=== PATIENT | male | born 1965 | race Caucasian/White ===

== ENCOUNTER 2021-04-17 22:40 | Emergency (ER) | payer SELFPAY ==
--- NOTE | ~2021-04-17 | CT_ITS ---
EXAMINATION: CT pelvis wo con DATE: 04/18/2021 03:27 INDICATION: Right hip pain TECHNIQUE: Computed tomography (CT) of the pelvis was performed without intravenous contrast. The dos e-length product (DLP) was 499.33 mGy-cm. Automated exposure control and iterative reconstruction bishop hnique were employed. COMPARISON: 05/20/2016 FINDINGS: There is no fracture, dislocation, or subluxation. Mild osteoarthritis is noted in the hips . There is distention of the urinary bladder. Changes of appendectomy are noted. No pathologically en larged pelvic lymph nodes are identified. IMPRESSION: 1. No acute osseous abnormality. Reviewed, dictated and finalized at location A.
--- NOTE | ~2021-04-17 | XR_ITS ---
EXAMINATION: XR hip RT 2V w AP pelvis INDICATION: Right hip pain TECHNIQUE: AP view of the pelvis and two views of the right hip COMPARISON: None available FINDINGS: Bone alignment is normal. There is no fracture. There is mild osteoarthritis of the hips. P hleboliths are noted in the pelvis. There is calcified atherosclerosis. IMPRESSION: 1. Mild osteoarthritis without acute osseous abnormality. Reviewed, dictated and finalized at location A.
[2021-04-17 22:51] VITALS: BP 161/89; PULSE 76; RESP 18; TEMP 36.9; O2SAT 99
[2021-04-17 22:58] LABS: Glucose Point of Care > 500 mg/dl (65-105)
[2021-04-17 23:16] VITALS: PULSE 75; RESP 13; O2SAT 99
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
[2021-04-18] MEDS: HYDROcodone/acetaminophen (*CRX) 5-325 MG TABLET 1 TAB PO (00:08)
[2021-04-18] MEDS: SODIUM CHLORIDE 0.9% IV 1,000 ML 999 ML IV CONT (00:08)
[2021-04-18] MEDS: KETOROLAC 30 MG/ML VIAL (*BKC) IV PUSH (00:10)
[2021-04-18 00:20] LABS: Basophils Absolute Auto 0.1 K/mm3 (0.0-0.1); Basophils Percent Auto 0.9 % (0.2-1.2); Eosinophils Percent Auto 0.7 % (0-4.4); Hematocrit 37.2 % (42.0-52.0); Hemoglobin 12.8 g/dL (14.0-18.0); Immature Granulocyte Absolute 0.02 K/mm3 (0.00-0.031); Immature Granulocyte Percent A 0.4 % (0-0.5); Lymphocytes Absolute Auto 1.48 K/mm3 (0.9-3.2); Lymphocytes Percent Auto 26.2 % (18.3-44.2); Mean Corpuscular HGB Conc 34.4 g/dl (32-36); Mean Corpuscular Hemoglobin 29.3 pg (26-34); Mean Corpuscular Volume 85.1 fl (80-100); Mean Platelet Volume 10.3 fl (7.4-10.4); Monocytes Absolute Auto 0.4 K/mm3 (0.1-0.6); Monocytes Percent Auto 6.7 % (2.6-8.5); Neutrophils Absolute Auto 3.7 K/mm3 (1.3-6.7); Neutrophils Percent Auto 65.1 % (45.5-73.1); Platelet Count Result 198 k/mm3 (150-375); Red Blood Count 4.37 M/mm3 (4.6-6.20); Red Cell Distribution Width 11.8 % (11.5-14.5); White Blood Count 5.6 K/mm3 (4.5-10.0)
[2021-04-18 00:49] LABS: Alanine Aminotransferase 22 U/L (4-50); Albumin Level 4.5 g/dL (3.5-5.1); Alkaline Phosphatase 115 U/L (38-126); Anion Gap 12 mmol/L (8-16); Aspartate Amino Transferase 21 U/L (17-59); Bilirubin,Total 0.7 mg/dL (0.2-1.3); Blood Urea Nitrogen 22 mg/dL (9-20); Calcium 9.6 mg/dL (8.4-10.2); Carbon Dioxide 26 mmol/L (22-30); Chloride 97 mmol/L (98-107); Estimated CRCL calculation 75 ml/min; Estimated Glomerular Filt Rate > 60; Glucose 551 mg/dL (65-110); Potassium 4.6 mmol/L (3.4-5.0); Sodium 135 mmol/L (137-145)
[2021-04-18 01:04] LABS: Add Urine Microscopic? YES; Appearance Urine Clear (Clear); Bilirubin Urine Negative (Negative); Blood Urine Negative (Negative); Color Urine Straw (Yellow); Glucose Urine UA 3+ mg/dL (Negative); Ketones Urine Negative (Negative); Leukocyte Esterase Ur Negative LEU/UL (Negative); Nitrate Urine Negative (Negative); Protein Urine Negative (Negative); Urobilinogen Urine Negative mg/dL (<2.0); WBC Urine 0-3 /hpf
[2021-04-18 01:12] LABS: Specific Grav Ur 1.032 (1.001-1.035)
[2021-04-18] MEDS: INSULIN HUMAN REGULAR (*BKC) 100 UNITS/ML 10 UNITS SUB-Q (01:28)
[2021-04-18 02:30] LABS: Glucose Point of Care 410 mg/dl (65-105)
[2021-04-18 02:33] VITALS: BP 164/86; PULSE 73; RESP 15; O2SAT 100
[2021-04-18] MEDS: HYDROmorphone HCL INJ (*CRX) 1 MG/ML SYR 0.5 MG IV PUSH (03:21)
[2021-04-18 05:38] VITALS: BP 116/71; PULSE 86; RESP 17; O2SAT 98
== END 2021-04-18 05:40 | disposition home or self-care (01) ==
PROVIDERS: Emergency Provider General Practice
DX: M54.31 Sciatica, right side (principal); E11.65 Type 2 diabetes mellitus with hyperglycemia; E11.42 Type 2 diabetes mellitus with diabetic polyneuropathy; Z79.4 Long term (current) use of insulin; Z91.14 Patient's other noncompliance with medication regimen; Z87.891 Personal history of nicotine dependence
CPT/HCPCS: 36415; 72192; 73502; 80053; 81001; 82948; 85025; 96361; 96374; 96375; 99284; A9270; J1170; J1815; J1885; J7030

== ENCOUNTER 2021-08-15 18:48 | Observation (INO) | payer OTHER, SELFPAY ==
[2021-08-15] VITALS (20 sets, daily range): BP systolic 97–133; BP diastolic 54–77; PULSE 73–92; RESP 11–23; TEMP 36.4; O2SAT 98–100
--- NOTE | ~2021-08-15 | CT_ITS ---
EXAMINATION: CT brain wo con INDICATION: Dizziness, history of CVA COMPARISON: None TECHNIQUE: Standard unenhanced head CT. The dose-length product (DLP) was 605.33 mGy-cm. The mA was a djusted according to patient size. Iterative reconstruction technique was employed. FINDINGS: There is no intracranial hemorrhage, acute infarction, or abnormal mass lesion. There is segundo btle low attenuation of the left thalamus which may reflect prior infarction. The ventricles are norm al. There is no abnormal mass effect or midline shift. The dalal-white matter differentiation is anna l. The basal cisterns are patent. The orbits are normal. The paranasal sinuses, mastoids and calvariu m are normal. IMPRESSION: 1. Low-attenuation of the left thalamus which may reflect prior infarction. Reviewed, dictated and finalized at location F. H WORKER
--- NOTE | ~2021-08-15 | CT_ITS ---
EXAMINATION: CTA brain carotid DATE: 08/15/2021 20:47 INDICATION: Transient alteration of awareness, dizziness TECHNIQUE: Computed tomographic angiography (CTA) of the head was performed without and with 100 mL O mnipaque-350 intravenous contrast. CTA of the neck was performed with intravenous contrast. The dose- length product was 1195.58 mGy-cm. Maximum intensity projection and volume rendered 3D-reconstruction s were created by the technologist on a separate workstation. Automated exposure control and iterativ e reconstruction technique were employed. COMPARISON: None. FINDINGS: HEAD CTA: There is no intracranial hemorrhage, acute infarction, or abnormal mass lesion. The ventric les are normal. There is no abnormal mass effect or midline shift. The dalal-white matter differentiat ion is normal. The basal cisterns are patent. The orbits are normal. The paranasal sinuses, mastoids and calvarium are normal. There is no significant stenosis of the basilar artery or posterior cerebral arteries. There is no si gnificant stenosis of the intracranial internal carotid arteries or the anterior or middle cerebral a rteries. The anterior communicating artery and left posterior communicating artery are normal. The ri ght posterior communicating arteries hypoplastic. There is no aneurysm. NECK CTA: The thyroid gland is unremarkable. The submandibular and parotid glands are symmetric. Ther e is no lymphadenopathy. There are no masses identified. The airway is unremarkable. There is mild ce rvical spondylosis.. The superior mediastinum is unremarkable. There is 29% stenosis of the proximal right internal carotid artery relative to normal distal artery lumen diameter (NASCET criteria). There is 11% stenosis of the proximal left internal carotid artery relative to normal distal artery lumen diameter. IMPRESSION: 1. No acute intracranial abnormality. Hypoplastic right posterior communicating artery, otherwise nor mal head CTA. 2. 29% stenosis of the proximal right internal carotid artery relative to normal distal artery lumen diameter (NASCET criteria). 3. 11% stenosis of the proximal left internal carotid artery relative to normal distal artery lumen d iameter. Reviewed, dictated and finalized at location F. ER PREPARER IMPRESSION: 1. No acute intracranial abnormality. Hypoplastic right posterior communicating artery, otherwise normal head CTA. 2. 29% stenosis of the proximal right internal carotid artery relative to anna l distal artery lumen diameter (NASCET criteria). 3. 11% stenosis of the proximal left internal carotid artery relative to normal distal artery lumen diameter.
--- NOTE | 2021-08-15 19:01 | ECG_ITS ---
Measurements Intervals [place] Rate: 73 P: 42 RI: 168 QRS: -6 QRSD: 96 T: 42 QT: 408 QTc: 450 Interpretive Statements SINUS RHYTHM INCOMPLETE RIGHT BUNDLE BRANCH BLOCK CANNOT RULE OUT SEPTAL INFARCT, AGE INDETERMINATE BASELINE ARTIFACT- V1 ABNORMAL ECG Electronically Signed On 08-15-2021 20:54:26 HEALTHCARE ADVISORY SERVICES MANAGER by Ronny Mcclellan D.O.
[2021-08-15 19:05] LABS: Glucose Point of Care 174 mg/dl (65-105)
[2021-08-15 19:20] LABS: Basophils Percent Auto 0.4 % (0.2-1.2); Eosinophils Percent Auto 0.1 % (0-4.4); Hematocrit 34.2 % (42.0-52.0); Hemoglobin 11.7 g/dL (14.0-18.0); Immature Granulocyte Absolute 0.05 K/mm3 (0.00-0.031); Immature Granulocyte Percent A 0.5 % (0-0.5); Lymphocytes Absolute Auto 1.61 K/mm3 (0.9-3.2); Lymphocytes Percent Auto 16.3 % (18.3-44.2); Mean Corpuscular HGB Conc 34.2 g/dl (32-36); Mean Corpuscular Hemoglobin 30.4 pg (26-34); Mean Corpuscular Volume 88.8 fl (80-100); Mean Platelet Volume 9.8 fl (7.4-10.4); Monocytes Absolute Auto 0.6 K/mm3 (0.1-0.6); Monocytes Percent Auto 6.2 % (2.6-8.5); Neutrophils Absolute Auto 7.6 K/mm3 (1.3-6.7); Neutrophils Percent Auto 76.5 % (45.5-73.1); Platelet Count Result 205 k/mm3 (150-375); Red Blood Count 3.85 M/mm3 (4.6-6.20); Red Cell Distribution Width 12.7 % (11.5-14.5); White Blood Count 9.9 K/mm3 (4.5-10.0)
--- NOTE | 2021-08-15 19:31 | ED.SYNCOPE ---
HPI - Syncope General Chief Complaint: Syncope Stated Complaint: DIZZY, NEAR SYNCOPE Time Seen by Provider: 08/15/21 19:07 Source: patient Mode of arrival: EMS Limitations: no limitations History of Present Illness HPI narrative: Patient is a 55-year-old male complaining of a syncopal episode while at work today. Patient states that he felt dizzy and passed out, lasted for approximately 30 minutes , happened around 5 PM, I do not remember coming here . Patient denies any headache, speech or visual disturbance, focal weakness or numbness, unsteady gait, chest pain, shortness of breath, abdominal pain, nausea, vomiting, diarrhea, fever or chills. Patient has a history of [place] and CVA in the past. Related Data Home Medications Medication Instructions Recorded Confirmed escitalopram oxalate 40 mg PO DAILY 04/17/21 gabapentin PO 04/17/21 insulin glargine [Lantus U-100 14 unit SUBCUT BID 04/17/21 Insulin] lisinopril 20 mg PO DAILY 04/17/21 04/17/21 pantoprazole 20 mg PO HS 04/17/21 Allergies Allergy/AdvReac Type Severity Reaction Status Date / Time No Known Allergies Allergy Unknown Verified 04/17/21 23:21 Review of Systems Review of Systems: All systems reviewed & are unremarkable except as noted in HPI and below Constitutional: Constitutional: Denies body ache(s), Denies chills, Denies excessive sweating, Denies fatigue, Denies fever(s), Denies headache(s), Denies lethargy, Denies malaise, Denies weakness and Denies weight loss Eyes: Eyes: Denies blurry vision, Denies change in vision and Denies loss of vision ENT: Denies dizziness, Denies ear discharge, Denies headache(s), Denies lip swelling, Denies epistaxis, Denies nasal congestion, Denies neck pain, Denies throat swelling and Denies tongue swelling Cardiovascular: Cardiovascular: Denies chest pain, Denies chest pain at rest, Denies chest pain with activity, Denies diaphoresis, Denies rapid heart rate, Denies edema, Denies irregular heart rhythm, Denies lightheadedness, Denies palpitations, Denies dyspnea and Denies dyspnea on exertion Respiratory: Respiratory: Denies chest congestion, Denies cough, Denies hemoptysis, Denies dyspnea and Denies dyspnea on exertion Gastrointestinal: Gastrointestinal: Denies abdominal pain, Denies melena, Denies hematochezia, Denies diarrhea, Denies nausea, Denies vomiting and Denies hematemesis Musculoskeletal: Musculoskeletal: Denies abnormal gait, Denies deformity, Denies joint swelling, Denies limited range of motion, Denies neck pain and Denies numbness Neurologic: Denies Abnormal speech present, Denies abnormal gait, Denies confusion, Denies headache(s), Denies focal weakness, Denies loss of vision, Denies numbness, Denies Other visual disturbances, Denies Sensory deficit (Neuro) and Denies weakness Psychiatric: Psychiatric: Denies confusion, Denies depression, Denies auditory hallucinations, Denies homicidal ideation and Denies suicidal ideation Endocrine: Endocrine: Denies cold intolerance, Denies excessive sweating, Denies fatigue, Denies heat intolerance and Denies palpitations Hematologic/Lymphatic: Hematologic/Lymphatic: Denies easy bleeding and Denies easy bruising Allergic/Immunologic: Allergic/Immunologic: Denies lip swelling, Denies throat swelling and Denies tongue swelling PMFSH Past Medical History Medical History Diabetes mellitus Noncompliance Peripheral neuropathy Social History Social History Smoking status: Former smoker Smoking end date: 06/21/88 Alcohol intake: current Substance use type: marijuana Exam Const: General: cooperative, healthy appearing, comfortable, no acute distress, well developed, alert and awake; No confusion Orientation/consciousness: oriented to person, oriented to place, oriented to time, patient oriented x3 and No confusion Limitations: no limitations [facility]
--- NOTE | 2021-08-15 19:36 | PC.NURSE ---
Called lab talked to Linda and added Trop 1- 19:37
[2021-08-15] MEDS: LACTATED RINGERS 1,000 ML 999 ML IV CONT (20:04)
[2021-08-15 20:13] LABS: Alanine Aminotransferase 20 U/L (4-50); Albumin Level 4.1 g/dL (3.5-5.1); Alkaline Phosphatase 98 U/L (38-126); Anion Gap 5 mmol/L (8-16); Aspartate Amino Transferase 21 U/L (17-59); Bilirubin,Total 0.7 mg/dL (0.2-1.3); Blood Urea Nitrogen 15 mg/dL (9-20); Calcium 9.1 mg/dL (8.4-10.2); Carbon Dioxide 29 mmol/L (22-30); Chloride 104 mmol/L (98-107); Estimated Glomerular Filt Rate > 60; Glucose 155 mg/dL (65-110); Sodium 138 mmol/L (137-145)
[2021-08-15 20:28] LABS: Troponin I < 0.012 ng/mL (0.000-0.034)
[2021-08-15] MEDS: ACETAMINOPHEN 325 MG TABLET 650 MG PO (22:33)
[2021-08-15 23:46] LABS: Add Urine Microscopic? YES; Appearance Urine Clear (Clear); Bilirubin Urine Negative (Negative); Blood Urine Negative (Negative); Color Urine Yellow (Yellow); Glucose Urine UA 3+ mg/dL (Negative); Hyaline Casts Urine 20-29 /lpf; Ketones Urine 1+ mg/dL (Negative); Leukocyte Esterase Ur Negative LEU/UL (Negative); Mucus Urine Few /lpf; Nitrate Urine Negative (Negative); Protein Urine Negative (Negative); RBC Urine 0-2 /hpf (0-2); Squamous Epithelial Cell Urine Rare /hpf (Few); Urobilinogen Urine Negative mg/dL (<2.0); WBC Urine 0-3 /hpf
[2021-08-15 23:54] LABS: Specific Grav Ur 1.015 (1.001-1.035)
[2021-08-16] VITALS (12 sets, daily range): BP systolic 100–130; BP diastolic 52–76; PULSE 70–91; RESP 16–20; TEMP 35.7–37; O2SAT 96–100; BMI 26.8
--- NOTE | 2021-08-16 00:29 | ADMGEN ---
This patient, Omkar Dorantes, was admitted to Medical Room 249-01. Patient/family oriented to hospital policies and general routines including ID bracelet, bed and alarms, visiting hours, pain management, procedures, bathroom and other care routines, personal items, smoking policy, room service/diet, and visiting hours. Information on how to activate the Rapid Response Team has been discussed. Patient/Family are encouraged to report perceived risks to care and to ask questions if they do not understand what they are told or what they should do.
--- NOTE | 2021-08-16 00:38 | PM.IMHP ---
H&P: HPI History of Present Illness Date/Time: 08/16/21 00:38 Chief Complaint: Passing out and lightheadedness Narrative: 55-year-old male with past medical history of noncompliance with medical therapy, coronary artery disease status post CABG, uncontrolled diabetes mellitus, diabetic peripheral neuropathy, diabetic retinopathy, impotence and esophagitis who presented to the ER with an episode of lightheadedness followed by syncope. The patient reports that over the last several days he has been trying to stop drinking soda. Subsequently he has decreased his oral intake and has not replaced his soda with water. He recently returned to work after being off for several months with sciatica pain. He returned to work about 2 weeks ago. He reports that for the last couple of days the work any time he goes to stand up in start performing activities he becomes extremely weak, lightheaded and almost dizzy. He reports that he feels like he is going to pass out and often has to sit back down. Today he became so lightheaded that he immediately sat down but still proceeded to pass out. Even though he regained consciousness he still felt out of it in does not remember much until after he got to the ER. His glucoses in the field for 160. He episode of syncope occurred some around 5:00 a.m. and he reports that he does not really remember much about getting to the ER. He did not have any change in his speech. He has been having some changes in his vision but has a history of diabetic retinopathy and has not been taking his any of his medications for the last 2 months. He denies any acute change in his vision over the last several days to weeks. He has chronic unsteady gait due to his peripheral neuropathy. He reports a as the so had difficulty with his balance ever since his stroke. He reported that he had 2 strokes following his open heart surgery in 2017. He denies any acute numbness. He does have pins and needle sensation in decreased sensation to his lower extremities and hands. He does have a history of CABG. He reports that a couple of days ago he noticed some reproducible tenderness to his chest with palpation. He is so states this with lifting heavy mop bucket at work. He had noticed the pain when he got up to go to the bathroom several nights ago. This pain was not like his chest pain associated with his NC. he denies any cough or congestion. He denies any fevers or chills. He denies any palpitations. He has not been having any significant shortness of breath, orthopnea or paroxysmal nocturnal dyspnea. He reports occasional lower extremity edema but none currently. He does report impotence that is a chronic issue. He denies any dysuria, hematuria or history of diabetic nephropathy. He rarely to never checks his blood sugars. He reports chronic dry mouth and polyuria. Orthostatic vital signs were performed in the ER and demonstrated a 30 point drop in systolic blood pressure from supine to standing and a increase in 20 points for heart rate between supine and sitting. Review of Systems Review of Systems: 12 systems were reviewed with pertinent positives and negatives per HPI. Except as documented in the HPI, all other systems were reviewed and are negative. [facility] Past Medical History Medical History (Updated 08/16/21 @ 05:04 by Selena Reyes DO) Chronic pain CVA (cerebral vascular accident) Depression Diabetes mellitus Diabetic peripheral neuropathy Essential hypertension GERD (gastroesophageal reflux disease) Kidney stones X3. Patient pass kidney stones without intervention. Noncompliance Surgical History Surgical History (Updated 08/16/21 @ 05:04 by Selena Reyes DO) History of appendectomy History of cardiac catheterization 2017 she is prior to CABG. Reportedly patient had 4 vessel disease all with at least 90% stenosis of all vessels. Hx of CABG (~2017) 4 vessel CABG performed at [facility]
[2021-08-16] MEDS: LACTATED RINGERS 1,000 ML 999 ML IV CONT (01:53)
[2021-08-16] MEDS: INSULIN GLARGINE (*BKC) 100 UNITS/ML 20 UNITS SUB-Q (01:54)
[2021-08-16] MEDS: LACTATED RINGERS 1,000 ML 125 ML IV CONT ×2 (02:50→11:49)
--- NOTE | 2021-08-16 03:25 | PC.NURSE ---
medication list verified with at the [facility] Waldo Arellano.
[2021-08-16 07:52] LABS: Glucose Point of Care 326 mg/dl (65-105)
[2021-08-16] MEDS: ESCITALOPRAM OXALATE 10 MG TABLET 40 MG PO (08:22)
[2021-08-16] MEDS: GABAPENTIN 300 MG CAPSULE 600 MG PO ×2 (08:22→13:04)
[2021-08-16] MEDS: ENOXAPARIN 40 MG/0.4 ML SYRINGE SUB-Q (08:23)
[2021-08-16] MEDS: INSULIN ASPART (*BKC) 100 UNITS/ML SUB-Q (08:28)
[2021-08-16 11:25] LABS: Glucose Point of Care 162 mg/dl (65-105)
--- NOTE | 2021-08-16 12:06 | PM.DS ---
DS: Admitting Diagnosis Discharge Date 08/16/2021 Admitting Diagnosis Passing out and lightheadedness DS: Discharge Diagnosis Discharge Diagnosis (1) Syncope due to orthostatic hypotension: Code(s): I95.1 - Orthostatic hypotension Status: Acute Assessment and Plan: 55-year-old male with past medical history of noncompliance with medical therapy, coronary artery disease status post CABG, uncontrolled diabetes mellitus, diabetic peripheral neuropathy, diabetic retinopathy, impotence and esophagitis who presented to the ER with an episode of lightheadedness followed by syncope. The patient reports that over the last several days he has been trying to stop drinking soda. Subsequently he has decreased his oral intake and has not replaced his soda with water. He recently returned to work after being off for several months with sciatica pain. He returned to work about 2 weeks ago. He reports that for the last couple of days the work any time he goes to stand up in start performing activities he becomes extremely weak, lightheaded and almost dizzy. Pt had ct head which was showed previous infarct and CTA of head and neck which was normal. Pt states to nurse that he took his lisinopril for the first time yesterday after several days which could have contributed to the syncope and postural hypotension. I will continue lisinopril at a half dose. (2) Dehydration: Code(s): E86.0 - Dehydration Status: Acute Assessment and Plan: Pt was found to be dehydrated with ketones in his urine pt given fluid hydration. Pt orthostatics checked on discharge and pt was not tilting. Pt is stable for discharge. (3) Insulin dependent diabetes mellitus: Status: Acute Assessment and Plan: Pt advised to do better with his DM control. Pt advised to stop drinking sodas, drink more water and eat more healthy foods like meat and protein or cheese and milk. Pt offered DM education here but pt wants to follow up at the [facility]. Pt states he takes 50 units of lantus I have cut back to 30 units if lantus. Pt will need to monitor his sugars the next few days. DS: Summary Hospital Course Hospital Course: 55-year-old male with past medical history of noncompliance with medical therapy, coronary artery disease status post CABG, uncontrolled diabetes mellitus, diabetic peripheral neuropathy, diabetic retinopathy, impotence and esophagitis who presented to the ER with an episode of lightheadedness followed by syncope. The patient reports that over the last several days he has been trying to stop drinking soda. Subsequently he has decreased his oral intake and has not replaced his soda with water. He recently returned to work after being off for several months with sciatica pain. He returned to work about 2 weeks ago. He reports that for the last couple of days the work any time he goes to stand up in start performing activities he becomes extremely weak, lightheaded and almost dizzy. Pt had ct head which was showed previous infarct and CTA of head and neck which was normal. Pt states to nurse that he took his lisinopril for the first time yesterday after several days which could have contributed to the syncope and postural hypotension. I will continue lisinopril at a half dose on discharge. Pt advised to do better with his DM control and stay compliant to his medications and stick to DM diet. Pt states he will follow in [facility] for DM education. Time Spent with Patient Time attestation: Total time spent providing and/or coordinating discharge services:45 minutes Exam Narrative: Generally: Middle aged man Respiratory: Clear to auscultation bilaterally Cardiovascular: Regular rate, regular rhythm, 2+ bilateral radial pedal pulses Gastrointestinal: Soft, nontender, nondistended, positive bowel sounds Skin: No foot wounds, no jaundice, positive pallor Musculoskeletal: No clubbing, cyanosis or edema Neurological: A
== END 2021-08-16 16:16 | disposition home or self-care (01) ==
LOC: ANHED 22:36 → ANH2MED 08-16 09:48
PROVIDERS: Emergency Medicine; Admitting Provider Internal Medicine; Emergency Provider Emergency Medicine; Visit Provider Family Medicine
DX: I95.1 Orthostatic hypotension (principal); E86.0 Dehydration; E11.42 Type 2 diabetes mellitus with diabetic polyneuropathy; E11.319 Type 2 diabetes mellitus with unspecified diabetic retinopathy without macular edema; G89.29 Other chronic pain; I25.10 Atherosclerotic heart disease of native coronary artery without angina pectoris; F32.9 Major depressive disorder, single episode, unspecified; I10 Essential (primary) hypertension; K21.9 Gastro-esophageal reflux disease without esophagitis; Z79.4 Long term (current) use of insulin; Z95.1 Presence of aortocoronary bypass graft; Z86.73 Personal history of transient ischemic attack (TIA), and cerebral infarction without residual deficits; Z87.891 Personal history of nicotine dependence; Z91.14 Patient's other noncompliance with medication regimen
CPT/HCPCS: 36415; 70450; 70496; 70498; 80053; 81001; 82948; 84484; 85025; 93005; 96360; 96361; 96372; 99285; A9270; G0378; J1650; J1815; J7120; Q9967